=== PATIENT | male | born 1995 | race Caucasian/White ===

== ENCOUNTER 2019-04-28 07:55 | Emergency (ER) | payer OTHER ==
[~2019-04-28] VITALS: Ht 165.1 cm; Wt 58.1 kg
[~2019-04-28 07:55] MED LIST: HYDROCORTISONE PO; PROPYLTHIOURACI50 MG PO
[2019-04-28] MEDS ORDERED: TAMIFLU75 MG PO (09:05)
[2019-04-28 09:11] VITALS: BP 110/72
== END 2019-04-28 09:11 | disposition home or self-care (01) ==
LOC: ER 07:55
DX: J11.1 Influenza due to unidentified influenza virus with other respiratory manifestations (principal); Q90.9 Down syndrome, unspecified; F84.0 Autistic disorder